=== PATIENT | male | born 1950 | race Caucasian/White ===

== ENCOUNTER 2022-11-28 00:37 | Inpatient (IN) | payer OTHER ==
[2022-11-28] MEDS ORDERED: hydrALAZINE 20 MG/ML VIAL ONE (01:19)
[2022-11-28] MEDS ORDERED: EPINEPHrine 1 MG/ML VIAL ONE (01:39)
[2022-11-28 01:50] LABS: #Eosinphils 0.2 thou/uL (0.0-0.7); #Lymphocytes 0.9 thou/uL (1.20-3.40); #Monocytes 0.3 thou/uL (0.11-0.59); #Neutrophils 5.8 thou/uL (1.40-6.50); %Basophils 0.5 % (0.0-1.0); %Eosinophils 2.6 % (0.0-10.0); %Lymphocytes 11.9 % (21.0-51.0); %Monocytes 4.8 % (0.0-10.0); %Neutrophils 80.3 % (42.0-75.0); Hemoglobin 16.7 g/dL (14.0-18.0); Mean Corpuscular HGB CONC 35.6 g/dL (32.0-36.0); Mean Corpuscular Hemoglobin 34.8 pg (27.0-31.0); Mean Corpuscular Volume 97.9 fl (78.0-98.0); Mean Platelet Volume 7.8 fL (7.4-10.4); Platelet Count 187 10x3/uL (130-400); RBC Distribution Width 13.8 % (11.5-14.5); White Blood Cell (WBC) Count 7.2 10x3/uL (4.8-10.8)
[2022-11-28] MEDS ORDERED: Acetaminophen 325 MG TAB PO PRN (02:06)
[2022-11-28 02:10] LABS: ALT (SGPT) 23 U/L (8-55); AST (SGOT) 19 U/L (5-34); Anion Gap 15 mmol/L (10-20); BUN (Urea Nitrogen) 16 mg/dL (8.4-25.7); Bilirubin, Total 0.5 mg/dL (0.2-1.2); Calcium 9.7 mg/dL (7.8-10.44); Carbon Dioxide 23 mmol/L (23-31); Chloride 108 mmol/L (98-107); Globulin 2.5 g/dL (2.4-3.5); Potassium 4.6 mmol/L (3.5-5.1); Protein, Total 6.5 g/dL (5.8-8.1); Sodium 141 mmol/L (136-145)
[2022-11-28] MEDS ORDERED: Magnesium 2 GM/50 ML BAG (IN WATER) ONE (02:12)
[2022-11-28] MEDS ORDERED: Furosemide 40 MG/4 ML VIAL ONE (02:12)
[2022-11-28] MEDS ORDERED: Albuterol Sulfate 2.5 mg/3 ml Neb ONE (02:13)
[2022-11-28] MEDS ORDERED: Ipratropium Bromide 2.5 ml Neb ONE (02:13)
[2022-11-28] MEDS ORDERED: Ondansetron ODT 4 MG TAB SL PRN (02:15)
[2022-11-28] MEDS ORDERED: Ondansetron PF 4 MG/2 ML Vial IVP PRN (02:15)
[2022-11-28 02:34] LABS: Calc. Creatinine Clearance 0 mL/min (70-130); Estimated GFR 82; Glucose 115 mg/dL (83-110)
[2022-11-28] MEDS ORDERED: hydrALAZINE 20 MG/ML VIAL SLOW IVP PRN (03:50)
[2022-11-28 04:23] LABS: Alkaline Phosphatase 91 U/L (40-110)
[2022-11-28] MEDS ORDERED: niCARdipine 25 MG/10 ML VIAL ONE ×2 (04:25→05:05)
[2022-11-28] MEDS: niCARdipine 25 MG in Sodium Chloride 0.9% 250 ML 250 ML IVPB SCH ×5 (04:45→20:43)
[2022-11-28] MEDS ORDERED: Furosemide 20 MG/2 ML VIAL SLOW IVP SCH (06:00)
[2022-11-28 06:25] LABS: Anion Gap 16 mmol/L (10-20); BUN (Urea Nitrogen) 16 mg/dL (8.4-25.7); Calc. Creatinine Clearance 0 mL/min (70-130); Calcium 10.4 mg/dL (7.8-10.44); Carbon Dioxide 22 mmol/L (23-31); Chloride 104 mmol/L (98-107); Estimated GFR 82; Glucose 162 mg/dL (83-110); Potassium 3.8 mmol/L (3.5-5.1); Sodium 138 mmol/L (136-145)
[2022-11-28 07:20] LABS: Hemoglobin 17.2 g/dL (14.0-18.0); Mean Corpuscular HGB CONC 33.6 g/dL (32.0-36.0); Mean Corpuscular Hemoglobin 33.2 pg (27.0-31.0); Mean Corpuscular Volume 98.7 fl (78.0-98.0); Mean Platelet Volume 7.7 fL (7.4-10.4); Platelet Count 207 10x3/uL (130-400); Red Blood Cell (RBC) Count 5.19 mill/uL (4.70-6.10)
[2022-11-28 08:01] LABS: SARS-CoV-2 NAA Rapid Test Not Detected (NotDetected)
[2022-11-28] MEDS: methylPREDNISolone Sod Succ 40 MG VIAL IVP SCH ×3 (08:20→18:30)
[2022-11-28] MEDS: Furosemide 40 MG/4 ML VIAL SLOW IVP SCH ×2 (08:20→14:43)
[2022-11-28 08:27] LABS: Band 13 % (5-11); Lymphocytes 4 % (21-51); MDiff Complete? YES; Monocytes 2 % (0-10); Neutrophil 81 % (42-75)
[2022-11-28] MEDS ORDERED: Thiamine HCl 200 MG/2 ML VIAL SLOW IVP SCH (09:00)
[2022-11-28] MEDS ORDERED: Pantoprazole 40 MG VIAL IVP SCH (09:00)
[2022-11-28] MEDS: Enoxaparin Sodium 40 MG/0.4 ML SYRINGE SC SCH (12:06)
[2022-11-28 12:40] VITALS: BMI 52.4
[2022-11-28] MEDS ORDERED: NIFEdipine XL 30 MG TAB PO SCH (18:00)
[2022-11-28] MEDS ORDERED: Azithromycin 500 MG in Sodium Chloride 0.9% 250 ML 250 ML IVPB SCH (18:30)
[2022-11-28] MEDS ORDERED: methylPREDNISolone Sod Succ 40 MG VIAL ONE (20:35)
[2022-11-28] MEDS: methylPREDNISolone Sod Succ/PF 125 MG/2 ML VIAL IVP SCH (20:41)
[2022-11-28] MEDS: diphenhydrAMINE 25 MG CAP PO SCH (20:42)
[2022-11-29] MEDS: diphenhydrAMINE 25 MG CAP PO SCH (01:00)
[2022-11-29] MEDS: methylPREDNISolone Sod Succ/PF 125 MG/2 ML VIAL IVP SCH (03:01)
[2022-11-29] MEDS ORDERED: cefTRIAXone\\ROCEPHIN 1 GM in Sodium Chloride 0.9% 100 ML IVPB SCH (04:00)
[2022-11-29] MEDS: Furosemide 40 MG/4 ML VIAL SLOW IVP SCH (05:13)
[2022-11-29 07:17] LABS: #Lymphocytes 0.8 thou/uL (1.20-3.40); #Monocytes 0.4 thou/uL (0.11-0.59); #Neutrophils 13.9 thou/uL (1.40-6.50); %Basophils 0.1 % (0.0-1.0); %Eosinophils 0.1 % (0.0-10.0); %Lymphocytes 5.2 % (21.0-51.0); %Monocytes 2.4 % (0.0-10.0); %Neutrophils 92.3 % (42.0-75.0); Hemoglobin 16.7 g/dL (14.0-18.0); Mean Corpuscular HGB CONC 32.9 g/dL (32.0-36.0); Mean Corpuscular Hemoglobin 32.5 pg (27.0-31.0); Mean Corpuscular Volume 98.8 fl (78.0-98.0); Mean Platelet Volume 7.7 fL (7.4-10.4); Platelet Count 231 10x3/uL (130-400); RBC Distribution Width 13.9 % (11.5-14.5); Red Blood Cell (RBC) Count 5.12 mill/uL (4.70-6.10); White Blood Cell (WBC) Count 15.1 10x3/uL (4.8-10.8)
[2022-11-29 07:35] LABS: BUN (Urea Nitrogen) 17 mg/dL (8.4-25.7); Calc. Creatinine Clearance 182 mL/min (70-130); Calcium 9.8 mg/dL (7.8-10.44); Carbon Dioxide 25 mmol/L (23-31); Chloride 106 mmol/L (98-107); Estimated GFR 92; Glucose 150 mg/dL (83-110); Potassium 4.2 mmol/L (3.5-5.1); Sodium 140 mmol/L (136-145)
[2022-11-29 08:30] LABS: Anion Gap 11 mmol/L (10-20)
[2022-11-29] MEDS: Enoxaparin Sodium 40 MG/0.4 ML SYRINGE SC SCH (08:51)
[2022-11-29] MEDS: Cefdinir 300 MG CAP PO SCH (08:51)
[2022-11-29] MEDS: Thiamine 100 MG TAB PO SCH (08:52)
[2022-11-29] MEDS: predniSONE 20 MG TAB PO SCH (08:52)
[2022-11-29] MEDS ORDERED: FLU VACC QS2022-23(65YR UP)/PF 240 MCG/0.7 ML SYRINGE IM ONE (09:00)
[2022-11-29] MEDS ORDERED: NIFEdipine XL 30 MG TAB PO SCH ×2 (09:00→17:30)
[2022-11-29] MEDS ORDERED: methylPREDNISolone Sod Succ 40 MG VIAL IVP SCH (09:00)
[2022-11-29] MEDS ORDERED: GUAIFENESIN SF SOLN 200 MG/10 ML UDCUP PO PRN (15:44)
[2022-11-29] MEDS: Ondansetron PF 4 MG/2 ML Vial IVP PRN ×2 (17:14→22:50)
[2022-11-29] MEDS ORDERED: hydrALAZINE 25 MG TAB PO PRN (17:27)
[2022-11-29] MEDS: guaiFENesin ER 600 MG TAB PO SCH (19:21)
[2022-11-29] MEDS ORDERED: Ipratropium Bromide 2.5 ml Neb ONE (22:25)
[2022-11-30] MEDS ORDERED: Ipratropium Bromide 2.5 ml Neb ONE (03:08)
[2022-11-30 06:36] LABS: #Basophils 0.1 thou/uL (0.0-0.2); #Lymphocytes 0.8 thou/uL (1.20-3.40); #Monocytes 0.8 thou/uL (0.11-0.59); #Neutrophils 12.3 thou/uL (1.40-6.50); %Basophils 0.7 % (0.0-1.0); %Eosinophils 0.1 % (0.0-10.0); %Lymphocytes 5.8 % (21.0-51.0); %Monocytes 5.4 % (0.0-10.0); Hemoglobin 16.9 g/dL (14.0-18.0); Mean Corpuscular HGB CONC 32.3 g/dL (32.0-36.0); Mean Corpuscular Hemoglobin 32.2 pg (27.0-31.0); Mean Corpuscular Volume 99.6 fl (78.0-98.0); Mean Platelet Volume 7.8 fL (7.4-10.4); Platelet Count 242 10x3/uL (130-400); RBC Distribution Width 14.1 % (11.5-14.5); Red Blood Cell (RBC) Count 5.26 mill/uL (4.70-6.10)
[2022-11-30 06:49] LABS: Anion Gap 13 mmol/L (10-20); BUN (Urea Nitrogen) 31 mg/dL (8.4-25.7); Calc. Creatinine Clearance 127 mL/min (70-130); Calcium 10.5 mg/dL (7.8-10.44); Carbon Dioxide 30 mmol/L (23-31); Chloride 100 mmol/L (98-107); Estimated GFR 63; Glucose 128 mg/dL (83-110); Potassium 3.7 mmol/L (3.5-5.1); Sodium 139 mmol/L (136-145)
[2022-11-30] MEDS: Cefdinir 300 MG CAP PO SCH (08:13)
[2022-11-30] MEDS: NIFEdipine XL 60 MG TAB PO SCH (08:13)
[2022-11-30] MEDS: predniSONE 20 MG TAB PO SCH (08:13)
[2022-11-30] MEDS: Thiamine 100 MG TAB PO SCH (08:13)
[2022-11-30] MEDS: Furosemide 40 MG TAB PO SCH (08:13)
[2022-11-30] MEDS: guaiFENesin ER 600 MG TAB PO SCH ×2 (08:13→21:04)
[2022-11-30] MEDS: Enoxaparin Sodium 40 MG/0.4 ML SYRINGE SC SCH (08:13)
[2022-11-30] MEDS ORDERED: metroNIDAZOLE 500 MG TAB PO SCH (09:15)
[2022-11-30] MEDS ORDERED: Chlorhexidine Gluconate 15 ML UDCUP SSP SCH (09:15)
[2022-11-30] MEDS: metroNIDAZOLE 500 MG TAB PO SCH ×2 (15:14→21:04)
[2022-11-30] MEDS ORDERED: Loratadine 10 MG TAB PO SCH (21:00)
[2022-11-30] MEDS ORDERED: Multivit, Therapeutic 1 TAB PO SCH (21:00)
[2022-11-30] MEDS ORDERED: Folic Acid 1 MG TAB PO SCH (21:00)
[2022-11-30] MEDS: Chlorhexidine Gluconate 15 ML UDCUP SSP SCH (21:03)
[2022-11-30] MEDS: Famotidine 20 MG TAB PO SCH (21:04)
[2022-12-01 07:48] VITALS: BP 163/76; TEMP 98.5
[2022-12-01] MEDS: Furosemide 40 MG TAB PO SCH (08:34)
[2022-12-01] MEDS: Cefdinir 300 MG CAP PO SCH (08:34)
[2022-12-01] MEDS: Chlorhexidine Gluconate 15 ML UDCUP SSP SCH (08:35)
[2022-12-01] MEDS: Enoxaparin Sodium 40 MG/0.4 ML SYRINGE SC SCH (08:35)
[2022-12-01] MEDS: predniSONE 20 MG TAB PO SCH (08:35)
[2022-12-01] MEDS: NIFEdipine XL 60 MG TAB PO SCH (08:35)
[2022-12-01] MEDS: metroNIDAZOLE 500 MG TAB PO SCH (08:35)
[2022-12-01] MEDS: guaiFENesin ER 600 MG TAB PO SCH (08:35)
[2022-12-01] MEDS: Famotidine 20 MG TAB PO SCH (08:35)
[2022-12-01] MEDS: Thiamine 100 MG TAB PO SCH (08:35)
== END 2022-12-01 13:20 | disposition home or self-care (01) | DRG 915 ==
LOC: ERS 00:37 → ERHOLD 01:58 → T4-A 08:28 → CCU 08:29 → T4-A 11-29 10:57
PROVIDERS: ADMIT Internal Medicine; ATTEND Internal Medicine
PROC: 30233K1 Transfusion of Nonautologous Frozen Plasma into Peripheral Vein, Percutaneous Approach (ICD-10-PCS; principal; 2022-11-28)
DX: T78.3XXA Angioneurotic edema, initial encounter (principal); I50.33 Acute on chronic diastolic (congestive) heart failure; J96.01 Acute respiratory failure with hypoxia; I16.1 Hypertensive emergency; Z68.43 Body mass index [BMI] 50.0-59.9, adult; J44.1 Chronic obstructive pulmonary disease with (acute) exacerbation; G47.33 Obstructive sleep apnea (adult) (pediatric); Z20.822 Contact with and (suspected) exposure to COVID-19; I11.0 Hypertensive heart disease with heart failure; E66.9 Obesity, unspecified; F10.20 Alcohol dependence, uncomplicated; I25.10 Atherosclerotic heart disease of native coronary artery without angina pectoris; E78.00 Pure hypercholesterolemia, unspecified; F17.210 Nicotine dependence, cigarettes, uncomplicated; T46.4X5A Adverse effect of angiotensin-converting-enzyme inhibitors, initial encounter; Z79.52 Long term (current) use of systemic steroids; Z71.6 Tobacco abuse counseling; Z79.899 Other long term (current) drug therapy; Z88.8 Allergy status to other drugs, medicaments and biological substances; I25.2 Old myocardial infarction
CPT/HCPCS: 36415; 36430; 71045; 80048; 80053; 83880; 84484; 85025; 86850; 86900; 86901; 93005; 94640; C9113; J0171; J0360; J0456; J0696; J1650; J1940; J2405; J2920; J2930; J3411; J3475; J3490; J7050; J7512; J7611; J7620; P9059; U0002